=== PATIENT | female | born 1935 | race Caucasian/White ===

== ENCOUNTER 2017-02-11 08:00 | Inpatient (IN) | payer MEDICARE, OTHER ==
[2017-02-11 08:10] VITALS: BMI 23.0
[2017-02-17] MEDS ORDERED: Clindamycin/D5W 600 mg/50 ml Premix Bag ONE (07:31)
[2017-02-17] MEDS ORDERED: Tranexamic Acid 1,000 MG/100 ML BAG ONE ×2 (07:31→11:36)
[2017-02-17] MEDS ORDERED: Midazolam HCl 2 mg/2 ml Vial ONE ×2 (07:55→09:27)
[2017-02-17] MEDS ORDERED: Fentanyl 100 MCG/2 ML VIAL ONE ×3 (07:55→10:05)
[2017-02-17] MEDS ORDERED: Ropivacaine 0.2% HCl/PF 20 ML ONE (07:55)
[2017-02-17] MEDS ORDERED: Ropivacaine HCl/PF 250 ML in Premix Bag 1 BAG NERVE BLCK SCH (09:09)
[2017-02-17] MEDS ORDERED: Zolpidem Tartrate 5 MG TAB PO PRN ×2 (09:09→09:54)
[2017-02-17] MEDS ORDERED: Promethazine HCl 25 MG/ML VIAL IM PRN ×3 (09:09→11:33)
[2017-02-17] MEDS ORDERED: Ondansetron HCl/PF 4 MG/2 ML Vial IVP PRN ×3 (09:09→11:33)
[2017-02-17] MEDS ORDERED: Fentanyl 100 MCG/2 ML VIAL IV PRN (09:10)
[2017-02-17] MEDS ORDERED: Bupivacaine PF 0.5% 30 ML VIAL ONE (09:12)
[2017-02-17] MEDS ORDERED: Lidocaine 2% PF 10 ML AMP (For Epidural Use) ONE (09:43)
[2017-02-17] MEDS ORDERED: Propofol 200 MG/20 ML VIAL ONE (09:43)
[2017-02-17] MEDS ORDERED: PHENYLEPHRINE-NS 100 MCG/ML 10 ML SYRINGE ONE (09:43)
[2017-02-17] MEDS ORDERED: traMADol HCl 50 MG TAB PO PRN (09:54)
[2017-02-17] MEDS ORDERED: Acetaminophen 325 MG TAB PO PRN (09:54)
[2017-02-17] MEDS ORDERED: diphenhydrAMINE 25 MG CAP PO PRN (09:54)
[2017-02-17] MEDS ORDERED: Morphine 4 MG/ML Carpuject IVP PRN (09:54)
[2017-02-17] MEDS ORDERED: Acetaminophen/Codeine Oral Solution PO PRN (09:59)
[2017-02-17] MEDS ORDERED: Tranexamic Acid 1,000 MG in Sodium Chloride 0.9% 100 ML IVPB SCH (10:00)
[2017-02-17 10:50] LABS: Bilirubin Negative (Negative); Blood, Urine Negative (Negative); Glucose, Urine (Dipstick) Negative (Negative); Ketone, Urine Negative (Negative); Nitrite Negative (Negative); Protein, Urine (Dipstick) Negative (Neg-Trace); Urobilinogen 0.2 mg/dL (0.2-1.0)
[2017-02-17 10:52] LABS: Bacteria/HPF None Seen HPF (None Seen); Hyaline Casts/LPF 0-3 HYALINE CAST LPF (0-3 Hyaline); RBC/HPF 0-3 HPF (0-3); Squamous Epithelial 0-3 HPF (0-3); WBC/HPF 0-3 HPF (0-3)
[2017-02-17] MEDS ORDERED: Promethazine HCl 25 MG/ML VIAL SLOW IVP PRN (11:33)
[2017-02-17] MEDS: Acetaminophen 1,000 MG in Premix Bag 1 BAG IVPB SCH ×2 (12:34→18:32)
[2017-02-17] MEDS: Sodium Chloride 0.9% 1,000 ML IV SCH ×2 (12:38→20:48)
[2017-02-17] MEDS ORDERED: Acetaminophen 650 MG/20.3 ML UDCUP PO PRN (13:04)
--- NOTE | 2017-02-17 13:26 | OP ---
DATE OF PROCEDURE: 02/17/2017 PREOPERATIVE DIAGNOSIS: Right knee osteoarthrosis. POSTOPERATIVE DIAGNOSIS: Right knee osteoarthrosis. PROCEDURE PERFORMED: Right total knee replacement using Vivek pinless navigation. SURGEON: Corby Thayer M.D. TURBINE INSPECTOR: Dylan Pack PA-C. BLOOD LOSS: Minimal. COMPLICATIONS: None. ANESTHESIA: She had general anesthetic. She also had a preoperative block. IMPLANTS: To the right knee is a [place] total knee system. The femur, size 3 cruciate r etaining. Tibial baseplate size 3 universal tibial baseplate. We used a 3 x 9 mm CS X3 bearing for the tibia and we used a symmetric 27 x 8 X3 patella. DISPOSITION: She did go to recovery in stable condition. INDICATIONS: An 81-year-old female who has had years of pain in the right knee and at this point sun s failed nonoperative treatment and wishes to have the knee replaced. PROCEDURE IN DETAIL: After all appropriate consent forms were explained and signed, the patient was taken back to the Operating Room and at this time was given general anesthetic. Once the level of an esthesia was appropriate, a well-padded tourniquet was placed on the right leg and the leg was then prepped and draped in standard surgical fashion. The limb was exsanguinated and tourniquet taken up to 300 mmHg. Midline incision was made with a 10 blade down through the skin and subcutaneous tissue . Bovie electrocautery was used to coagulate any brisk venous bleeding. A new blade was used to make a medial parapatellar arthrotomy. Small subperiosteal release was performed medially and excess fat pad was removed. The knee was flexed up to gain access to the femur. The femur was navigated and di stal femoral resection was made. Epicondylar access was used to align our sizing jig and this was pi nned in place. We sized our femur to be a size 3 cruciate retaining, 4:1 cutting block was applied a nd pinned. Anterior and posterior chamfer cuts were then made. We navigated out our proximal tibia a nd made our proximal tibial resection. Spreaders were used to remove any posterior osteophytes off t he back of the femur as well as remaining meniscal tissue. A long alignment margot was then used to ach ieve correct rotation of our tibial baseplate and a size 3 universal tibial baseplate was chosen. Th is was pinned in place. We trialed the polyethylene and a 3 x 9 mm CS X3 bearing gave us full extens ion and good stability throughout range of motion. Two towel clips and a saw were used to cut our pa tella. Three lug nuts were drilled and symmetric 27 x 8 X3 patella was trialed which sat nicely in [facility] trochlear groove. We then drilled our femur and punched our tibia. All components were removed. [facility] knee was thoroughly irrigated and dried. Cement was mixed into the cement gun on the back table. Components were then placed. The knee was held out in full extension until the cement had dried. All excess bone cement was removed. Multiple #2 Vicryl stitches as well as a Quill was used to close o ur extensor mechanism. 0 Quill followed by a running Monoderm was then used to close the skin. Surgi kely glue was then used on the skin. Once this had dried, soft tissue dressing was applied to the sellers b, tourniquet was let down, and the toes pinked up nicely. The patient was then awakened and taken to the Recovery Room in stable condition. All counts were correct at the end of the case. The patien t did receive preoperative IV antibiotics. The patient was injected with Exparel for postoperative pain relief.
[2017-02-17] MEDS ORDERED: Ketorolac Tromethamine 30 MG/ML VIAL IVP SCH (14:00)
[2017-02-17] MEDS ORDERED: Ropivacaine 0.5% HCl/PF (150 MG/30 ML VIAL) ONE (14:14)
[2017-02-17] MEDS ORDERED: Acetaminophen 650 MG/20.3 ML UDCUP PO SCH (18:00)
[2017-02-17] MEDS: Clindamycin/D5W 600 MG in Premix Bag 1 BAG IVPB SCH (18:31)
[2017-02-17] MEDS ORDERED: Vancomycin HCl 1 GM in Premix Bag 1 BAG IVPB SCH (20:00)
[2017-02-17] MEDS: Aspirin 325 MG TAB PO SCH (20:45)
[2017-02-17] MEDS: Senokot S 8.6-50 MG TAB PO SCH (20:49)
[2017-02-17] MEDS ORDERED: Ferrous Gluconate 324 MG TAB PO SCH (21:00)
[2017-02-18] MEDS: Clindamycin/D5W 600 MG in Premix Bag 1 BAG IVPB SCH ×2 (00:03→07:57)
[2017-02-18 05:37] LABS: Hematocrit 28.1 % (36.0-47.0); Mean Platelet Volume 7.5 fL (7.4-10.4); Red Blood Cell (RBC) Count 2.92 mill/uL (4.20-5.40); White Blood Cell (WBC) Count 4.5 thou/uL (4.8-10.8)
[2017-02-18] MEDS: Sodium Chloride 0.9% 1,000 ML IV SCH ×2 (05:47→14:42)
[2017-02-18] MEDS: Acetaminophen 1,000 MG in Premix Bag 1 BAG IVPB SCH ×4 (06:14→11:10)
[2017-02-18] MEDS: Senokot S 8.6-50 MG TAB PO SCH ×2 (07:54→20:42)
[2017-02-18] MEDS: Hydrochlorothiazide 25 MG TAB PO SCH (07:54)
[2017-02-18] MEDS: Aspirin 325 MG TAB PO SCH ×2 (07:55→20:42)
[2017-02-18] MEDS: Multivitamin W/ Minerals 1 TAB PO SCH (07:55)
[2017-02-18] MEDS: Amlodipine 5 MG TAB PO SCH (07:56)
[2017-02-18] MEDS: Cyanocobalamin (Vitamin B-12) 1,000 MCG TAB PO SCH (07:56)
[2017-02-18] MEDS ORDERED: BIOTIN 5000 MCG PO SCH (09:00)
[2017-02-18] MEDS ORDERED: BROMFENAC SODIUM L EYE SCH (09:00)
[2017-02-18] MEDS ORDERED: Ferrous Sulfate 325 MG TAB PO SCH (09:00)
--- NOTE | 2017-02-18 10:27 | CON ---
DATE OF CONSULTATION: 02/18/2017 REASON FOR CONSULTATION: Medical management. HISTORY OF PRESENT ILLNESS: This is an 81-year-old female patient with a history of hypertension, h yperlipidemia, multiple myeloma, osteoporosis with persistent right knee pain, which failed outpatie nt management. She is now status post right total knee replacement and doing well by Dr. Thayer. She had an unremarkable postoperative stay so far. She denies chest pain, shortness of breath, or palp itations. Her pain is managed appropriately with analgesia. She had some nausea this morning, but otherwise feeling fine. PAST MEDICAL HISTORY: Hypertension, hyperlipidemia pinched nerve, multiple myeloma, history of oste oporosis. MEDICATIONS: Include gabapentin 100 mg t.i.d., hydrochlorothiazide 25 mg daily, benazepril 10 mg da rosa, amlodipine 5 mg daily, vitamin D 2000 units daily, pravastatin 10 mg daily, Pepcid p.r.n. She was on Advil p.r.n. and aspirin 81 mg daily. ALLERGIES: PENICILLIN. PAST SURGICAL HISTORY: Foot surgery for her left foot in 2007, left meniscal knee repair in 2006, b ilateral salpingo-oophorectomy and hysterectomy in 2002, prolapsed bladder repair in 2012, cataract removal in 2013 and EGD in 2005. FAMILY HISTORY: Father at 72. Mother with leukemia and at 62. Sister with SC at 72. Brother with heart disease at 65. Sister with esophageal cancer. Mother with acute anemia. SOCIAL HISTORY: No smoking, no alcohol, no drug use. She is retired. She is a . She lives a lone at home with her daughter nearby. REVIEW OF SYSTEMS: As per the history of present illness. GENERAL: She denies any recent fevers, chills or recent illness. HEENT: Denies headache, vision or hearing changes. CARDIAC: Denies chest pain or shortness of breath. PULMONARY: Denies cough or hemoptysis. GASTROINTESTINAL: Denies nausea, vomiting at this time. Denies abdominal pain. GENITOURINARY: History of urinary tract infections. NEUROLOGIC: No weakness, seizures, or syncope. PHYSICAL EXAMINATION: VITAL SIGNS: Temperature 98.5, pulse 83, respirations 18, blood pressure 128/69, pulse ox 97% on ro om air. GENERAL: She is awake and alert, in no acute distress. Speech is clear. Mucosa is moist. NECK: Supple. HEART: Regular rate and rhythm. LUNGS: Clear. ABDOMEN: Soft, flat, nontender, nondistended. No hepatosplenomegaly. EXTREMITIES: With dressing and brace on her right knee. No edema, 2+ peripheral pulses bilaterally . LABORATORY DATA: Urinalysis was normal. Postop CBC reveals a white blood cell count of 4500, hemog lobin and hematocrit 9.3 and 28.1, platelets of 153. ASSESSMENT AND PLAN: This is an 81-year-old female patient with history of right knee osteoarthrosi s, status post right total knee replacement, doing well. 1. Postop of care per Orthopedics for deep venous thrombosis prevention and GI protection. 2. Hypertension. We will continue her oral meds and monitor closely. She seems to be doing fairly well right now. 3. Hyperlipidemia. We will continue her home medications. 4. Postop nausea is managed appropriately and she is doing better as well as with analgesia. 5. Disposition: Plan for discharge home with therapy tomorrow or as per Orthopedics.
[2017-02-18] MEDS: Acetaminophen/Codeine 120-12MG/5 ML UDCUP PO PRN ×2 (12:07→20:59)
[2017-02-18] MEDS ORDERED: Acetaminophen 500 MG TAB PO SCH (18:00)
[2017-02-19] MEDS: Sodium Chloride 0.9% 1,000 ML IV SCH ×2 (04:09→14:24)
[2017-02-19 05:15] LABS: Hematocrit 28.3 % (36.0-47.0); Mean Platelet Volume 7.8 fL (7.4-10.4); Red Blood Cell (RBC) Count 2.92 mill/uL (4.20-5.40)
[2017-02-19] MEDS: Acetaminophen/Codeine 120-12MG/5 ML UDCUP PO PRN ×2 (07:47→14:20)
[2017-02-19] MEDS: Amlodipine 5 MG TAB PO SCH (07:50)
[2017-02-19] MEDS: Hydrochlorothiazide 25 MG TAB PO SCH (07:51)
[2017-02-19] MEDS: Cyanocobalamin (Vitamin B-12) 1,000 MCG TAB PO SCH (07:51)
[2017-02-19] MEDS: Multivitamin W/ Minerals 1 TAB PO SCH (07:52)
[2017-02-19] MEDS: Senokot S 8.6-50 MG TAB PO SCH (07:52)
[2017-02-19] MEDS: Aspirin 325 MG TAB PO SCH (07:53)
--- NOTE | 2017-02-19 08:28 | PRG ---
DATE OF SERVICE: 02/19/2017 SUBJECTIVE: The patient denies chest pain, denies shortness of breath. She is tolerating physical therapy with the pain, but doing better. She only required her pain medicine last night before bed and then once this morning. She is anticipating therapy and motivated to proceed, so that her pain will improve. Anticipating being discharged home today as well. PHYSICAL EXAMINATION: VITAL SIGNS: Temperature 99.6 which is her T-max, pulse of 96, respirations 18, blood pressure 152/ 82, pulse ox 97% on room air. GENERAL: She is awake and alert, in no acute distress. HEENT: Speech is clear. NECK: Supple. HEART: Regular rate and rhythm. LUNGS: Clear. EXTREMITIES: With no edema. A dressing in brace on right knee. LABORATORY DATA: White blood cell count 7000, hemoglobin and hematocrit are 9.3 and 28.3, which is stable in her baseline. ASSESSMENT AND PLAN: This is an 81-year-old female patient with a history of chronic arthritis, now status post right total knee replacement and doing well. 1. Continue postop care as per Orthopedics. 2. Hypertension. We will continue her oral medications and monitor closely. We may start p.r.n. m edication, if her blood pressure elevates. 4. Postop nausea has resolved. 5. Disposition: Hopefully home later today after therapy.
[2017-02-19 14:05] VITALS: BP 134/70; TEMP 98.1
== END 2017-02-19 15:00 | disposition home or self-care (01) | DRG 470 ==
LOC: SURG A 02-17 07:06 → SJJU 02-17 11:53
PROVIDERS: ADMIT Orthopaedic Surgery; ATTEND Orthopaedic Surgery
PROC: 0SRC0J9 Replacement of Right Knee Joint with Synthetic Substitute, Cemented, Open Approach (ICD-10-PCS; principal; 2017-02-17)
PROC: 3E0T3BZ Introduction of Anesthetic Agent into Peripheral Nerves and Plexi, Percutaneous Approach (ICD-10-PCS; 2017-02-17)
DX: M17.0 Bilateral primary osteoarthritis of knee (principal); T81.89XA Other complications of procedures, not elsewhere classified, initial encounter; D64.9 Anemia, unspecified; I10 Essential (primary) hypertension; E78.5 Hyperlipidemia, unspecified; R11.0 Nausea; Z88.0 Allergy status to penicillin; Z90.710 Acquired absence of both cervix and uterus
CPT/HCPCS: 36415; 81001; 85027; 87086; C1713; C1776; G8978-GP-CL; G8979-GP-CJ; J0131; J2001; J2250; J2405; J2704; J2795; J3010; J3370; J3490; S0020

== ENCOUNTER 2017-05-02 19:08 | Emergency (ER) | payer MEDICARE, OTHER ==
--- NOTE | 2017-05-02 20:18 | RAD ---
EXAM: RIGHT HAND THREE VIEWS 05/02/17 HISTORY: Deformity. Pain. COMPARISON: None. FINDINGS: There is an impacted, mildly displaced distal radius fracture with extension of the fracture into the radiocarpal joint space. Displaced ulnar styloid fracture is noted. There is nonspecific soft tissue calcification at the base of the thumb as well as in the triangular fibrocartilage complex. 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 IMPRESSION: Distal radius and ulnar fractures. POS: BETTY
== END 2017-05-02 20:12 | disposition home or self-care (01) ==
LOC: SCSER 19:08
DX: S52.501A Unspecified fracture of the lower end of right radius, initial encounter for closed fracture (principal); S52.601A Unspecified fracture of lower end of right ulna, initial encounter for closed fracture; E78.5 Hyperlipidemia, unspecified; I10 Essential (primary) hypertension; Z79.82 Long term (current) use of aspirin; Z79.891 Long term (current) use of opiate analgesic; Z79.899 Other long term (current) drug therapy; W19.XXXA Unspecified fall, initial encounter
CPT/HCPCS: 29125

== ENCOUNTER 2017-11-04 13:43 | Outpatient (CLI) | payer MEDICARE, OTHER | END 2017-11-04 13:44 | disposition home or self-care (01) | LOC: BICMAMMO 13:43 | PROVIDERS: ATTEND Family Medicine | DX: Z12.31 Encounter for screening mammogram for malignant neoplasm of breast (principal) | CPT/HCPCS: 77063; 77067 ==

== ENCOUNTER 2018-07-31 07:47 | Outpatient (CLI) | payer MEDICARE, OTHER ==
--- NOTE | 2018-07-31 09:06 | MRI ---
MRI Cervical spine without contrast: HISTORY: Cervical radiculopathy. Patient complains of right arm pain which extends into neck. COMPARISON: CT cervical spine in 2017 FINDINGS: The craniocervical junction is unremarkable. No significant cord signal abnormality. Paravertebral soft tissues have a normal appearance and normal signal intensity. The thyroid nodule in the right lobe of thyroid gland seen on CT evaluation is now well imaged on thi s examination, but there is suggestion of a heterogeneous right thyroid nodule incompletely imaged or evaluated. C1-2:There is prominent degenerative changes and pannus formation seen at the articulation of the odo ntoid with the anterior arch of the C1 vertebral body. Prominent calcifications were seen in this region on prior CT exam. C2-3: No central disc bulge or disc herniation. The central spinal canal and neural foramina are loera nt. C3-4: There is minimal disc osteophyte complex present. There is no significant narrowing of the cent ral spinal canal. Facet degenerative changes are present. Findings result in mild bilateral neural foraminal narrowing. C4-5: There is a broad-based disc osteophyte complex resulting slight effacement of the ventral subar achnoid space. Facet hypertrophic changes are present. There is mild right and moderate to severe left-sided neural foraminal narrowing. C5-6: There is loss of intervertebral disc height. There is broad-based disc osteophyte complex. This slightly narrows the ventral subarachnoid space but does not encroach on the spinal cord. Facet hypertrophic changes are seen greater on the left. There is uncinate process hypertrophy on the right . There is severe right and mild to moderate left-sided neural foraminal narrowing. C6-7: There is broad-based disc osteophyte complex and facet hypertrophic changes. There is mild effa cement of the ventral subarachnoid space. There is mild bilateral neural foraminal narrowing greater on the right. C7-T1: No significant disc bulge or disc herniation. Central spinal canal and neural foramina are pat ent. T1-2 level: There is trace anterolisthesis of T1 on T2. There is slight wedge-shaped deformity of the T2 vertebral body which may be related to a Schmorl's node in the anterior superior endplate of the T2 vertebral body; however, given wedge-shaped appearance of this vertebral body, a mild remote w edge-shaped compression deformity cannot be excluded. There is no central disc bulge or disc herniation at this level. IMPRESSION: 1. Multilevel degenerative changes in the cervical spine. 2. Incomplete visualization of a heterogeneous nodule right lobe of the thyroid gland. This was visu alized on CT cervical spine on 12/26/2016. 3. Trace anterolisthesis of T1 on T2. There is mild wedge-shaped deformity of the T2 vertebral body, but there is no edema within the vertebral body to suggest evidence of a recent compression deformity.
== END 2018-07-31 07:48 | disposition home or self-care (01) ==
LOC: TBSIIMAG 07:47
PROVIDERS: ATTEND Orthopaedic Surgery
DX: M47.22 Other spondylosis with radiculopathy, cervical region (principal)
CPT/HCPCS: 72141

== ENCOUNTER 2024-01-26 09:13 | Inpatient (IN) | payer MEDICARE, OTHER ==
[2024-01-26 10:04] LABS: #Basophils Less than 0.03 10x3/uL (0.0-0.2); #Eosinophils Less than 0.03 10x3/uL (0.0-0.7); %Basophils 0.1 % (0.0-1.0); %Eosinophils 0.1 % (0.0-10.0); %Lymphocytes 16.5 % (21.0-51.0); %Monocytes 8.4 % (0.0-10.0); %Neutrophils 74.5 % (42.0-75.0); Hematocrit 32.8 % (36.0-47.0); Hemoglobin 10.6 g/dL (12.0-16.0); Mean Corpuscular HGB CONC 32.3 g/dL (32.0-36.0); Mean Corpuscular Volume 102.2 fL (78.0-98.0); Mean Platelet Volume 10.2 fL (7.4-10.4); Platelet Count 194 10x3/uL (130-400); RBC Distribution Width 13.8 % (11.5-14.5); Red Blood Cell (RBC) Count 3.21 mill/uL (4.20-5.40)
[2024-01-26] MEDS ORDERED: Iopamidol-370 76% 500 ML MDV (1 ML CHARGE) ONE (10:33)
[2024-01-26 10:44] LABS: ALT (SGPT) 10 U/L (8-55); AST (SGOT) 51 U/L (5-34); Albumin 3.7 g/dL (3.4-4.8); Alkaline Phosphatase 106 U/L (40-110); Anion Gap 14 mmol/L (10-20); BUN (Urea Nitrogen) 34 mg/dL (9.8-20.1); Bilirubin, Total 0.7 mg/dL (0.2-1.2); Calc. Creatinine Clearance 0 mL/min (70-130); Calcium 9.6 mg/dL (7.8-10.44); Carbon Dioxide 21 mmol/L (23-31); Chloride 108 mmol/L (98-107); Estimated GFR 55; Glucose 96 mg/dL (83-110); Magnesium 1.9 mg/dL (1.6-2.6); Potassium 3.7 mmol/L (3.5-5.1); Protein, Total 7.7 g/dL (5.8-8.1); Sodium 139 mmol/L (136-145)
[2024-01-26] MEDS ORDERED: Aspirin Chewable 81 MG TAB ONE (11:48)
[2024-01-26] MEDS ORDERED: Furosemide 40 MG (4 mL) VIAL ONE (11:48)
[2024-01-26 11:56] LABS: Troponin I 0.173 ng/mL (< 0.028)
[2024-01-26] MEDS ORDERED: Acetaminophen 650 MG Suppository PR PRN (12:52)
[2024-01-26] MEDS ORDERED: Acetaminophen 325 MG TAB PO PRN (12:52)
[2024-01-26] MEDS ORDERED: Electrolyte Replacement Protocol 1 EACH FS SCH (13:00)
[2024-01-26 13:02] LABS: Troponin I 0.165 ng/mL (< 0.028)
[2024-01-26 14:34] VITALS: BMI 21.9
[2024-01-26 16:01] LABS: Troponin I 0.197 ng/mL (< 0.028)
[2024-01-26] MEDS: Carbidopa/Levodopa 25-100 mg Tablet PO SCH (16:37)
[2024-01-26] MEDS: Furosemide 40 MG (4 mL) VIAL SLOW IVP SCH (16:37)
[2024-01-26] MEDS: Enalaprilat Dihydrate 1.25 MG/ML VIAL SLOW IVP SCH (17:43)
[2024-01-26] MEDS ORDERED: Enalaprilat Dihydrate 1.25 MG in Dextrose 5% in Water 50 ML IVPB SCH (18:00)
[2024-01-26 18:37] LABS: Troponin I 0.198 ng/mL (< 0.028)
[2024-01-27 05:15] LABS: #Basophils 0.03 10x3/uL (0.0-0.2); %Basophils 0.4 % (0.0-1.0); %Eosinophils 0.6 % (0.0-10.0); %Lymphocytes 20.4 % (21.0-51.0); %Monocytes 10.8 % (0.0-10.0); %Neutrophils 67.3 % (42.0-75.0); Hematocrit 36.6 % (36.0-47.0); Hemoglobin 11.8 g/dL (12.0-16.0); Mean Corpuscular HGB CONC 32.2 g/dL (32.0-36.0); Mean Corpuscular Hemoglobin 33.3 pg (27.0-31.0); Mean Corpuscular Volume 103.4 fL (78.0-98.0); Mean Platelet Volume 10.4 fL (7.4-10.4); Platelet Count 239 10x3/uL (130-400); RBC Distribution Width 13.7 % (11.5-14.5); Red Blood Cell (RBC) Count 3.54 mill/uL (4.20-5.40)
[2024-01-27 05:29] LABS: Anion Gap 17 mmol/L (10-20); BUN (Urea Nitrogen) 36 mg/dL (9.8-20.1); Calc. Creatinine Clearance 24 mL/min (70-130); Calcium 9.7 mg/dL (7.8-10.44); Carbon Dioxide 24 mmol/L (23-31); Chloride 105 mmol/L (98-107); Estimated GFR 34; Glucose 83 mg/dL (83-110); Potassium 3.8 mmol/L (3.5-5.1); Sodium 142 mmol/L (136-145)
[2024-01-27 05:45] LABS: Ferritin 107.82 ng/mL (10-291); Thyroid Stimulating Hormone 1.9784 uIU/mL (0.35-4.94)
[2024-01-27] MEDS: Cholecalciferol 1,000 UNITS (25 MCG) TAB PO SCH (08:27)
[2024-01-27] MEDS: Amlodipine 5 MG TAB PO SCH (08:28)
[2024-01-27] MEDS: Enoxaparin 40 MG (0.4 mL) SYRINGE SC SCH (08:29)
[2024-01-27] MEDS: Aspirin 81 mg Enteric Coated Tablet PO SCH (08:32)
[2024-01-27] MEDS ORDERED: BROMFENAC SODIUM 0.09% L EYE SCH (09:00)
[2024-01-27] MEDS ORDERED: E-Z-HD 98% W/W 340GM BOT (x-ray ONLY) ONE (12:35)
[2024-01-27] MEDS ORDERED: Barium Sulfate 96% 176 GM BOT (xray ONLY) ONE (12:35)
[2024-01-27 14:32] VITALS: BMI 20.3
[2024-01-28 04:36] LABS: #Basophils 0.03 10x3/uL (0.0-0.2); %Basophils 0.4 % (0.0-1.0); %Eosinophils 0.8 % (0.0-10.0); %Lymphocytes 27.7 % (21.0-51.0); %Monocytes 8.2 % (0.0-10.0); %Neutrophils 62.6 % (42.0-75.0); Hematocrit 35.9 % (36.0-47.0); Hemoglobin 11.7 g/dL (12.0-16.0); Mean Corpuscular HGB CONC 32.6 g/dL (32.0-36.0); Mean Corpuscular Hemoglobin 33.1 pg (27.0-31.0); Mean Corpuscular Volume 101.4 fL (78.0-98.0); Mean Platelet Volume 9.9 fL (7.4-10.4); Platelet Count 255 10x3/uL (130-400); RBC Distribution Width 13.5 % (11.5-14.5); Red Blood Cell (RBC) Count 3.54 mill/uL (4.20-5.40)
[2024-01-28 05:27] LABS: Anion Gap 15 mmol/L (10-20); BUN (Urea Nitrogen) 43 mg/dL (9.8-20.1); Calc. Creatinine Clearance 28 mL/min (70-130); Calcium 9.2 mg/dL (7.8-10.44); Carbon Dioxide 23 mmol/L (23-31); Chloride 104 mmol/L (98-107); Estimated GFR 44; Glucose 91 mg/dL (83-110); Potassium 3.3 mmol/L (3.5-5.1); Sodium 139 mmol/L (136-145)
[2024-01-28] MEDS: Potassium Chloride 20 MEQ TAB PO SCH (09:17)
[2024-01-28] MEDS: Enoxaparin 30 MG (0.3 mL) SYRINGE SC SCH (09:18)
[2024-01-28 14:10] LABS: Potassium 3.8 mmol/L (3.5-5.1)
[2024-01-28 17:09] VITALS: BP 125/65; TEMP 97.9
== END 2024-01-28 17:04 | disposition home health service (06) | DRG 291 ==
LOC: ERS 09:13 → OBS 14:18 → OBSVTOIN 01-27 12:51
PROVIDERS: ADMIT Internal Medicine; ATTEND Hospitalist
DX: I13.0 Hypertensive heart and chronic kidney disease with heart failure and stage 1 through stage 4 chronic kidney disease, or unspecified chronic kidney disease (principal); I50.33 Acute on chronic diastolic (congestive) heart failure; J96.01 Acute respiratory failure with hypoxia; C90.00 Multiple myeloma not having achieved remission; N17.9 Acute kidney failure, unspecified; Z68.1 Body mass index [BMI] 19.9 or less, adult; E44.1 Mild protein-calorie malnutrition; E78.5 Hyperlipidemia, unspecified; G20.A1 Parkinson's disease without dyskinesia, without mention of fluctuations; Z88.0 Allergy status to penicillin; Z90.710 Acquired absence of both cervix and uterus; Z98.890 Other specified postprocedural states; R13.10 Dysphagia, unspecified; I5A Non-ischemic myocardial injury (non-traumatic)
CPT/HCPCS: 36415; 71275; 74220; 80048; 80053; 82728; 83735; 83880; 84443; 84484; 85025; 93005; 93306; 93798; 96372; 96374; 96375; 96376; G0378; J1650; J1940; Q9967

== ENCOUNTER 2024-05-11 14:21 | Observation (INO) | payer MEDICARE, OTHER ==
[2024-05-11] MEDS ORDERED: Furosemide 40 MG (4 mL) VIAL ONE (15:37)
[2024-05-11 16:12] LABS: #Basophils 0.03 10x3/uL (0.0-0.2); %Basophils 0.7 % (0.0-1.0); %Eosinophils 1.6 % (0.0-10.0); %Lymphocytes 32.6 % (21.0-51.0); %Monocytes 9.1 % (0.0-10.0); %Neutrophils 55.8 % (42.0-75.0); Hematocrit 36.6 % (36.0-47.0); Hemoglobin 12.2 g/dL (12.0-16.0); Mean Corpuscular HGB CONC 33.3 g/dL (32.0-36.0); Mean Corpuscular Hemoglobin 33.5 pg (27.0-31.0); Mean Corpuscular Volume 100.5 fL (78.0-98.0); Mean Platelet Volume 10.3 fL (7.4-10.4); Platelet Count 160 10x3/uL (130-400); Red Blood Cell (RBC) Count 3.64 mill/uL (4.20-5.40)
[2024-05-11 16:33] LABS: ALT (SGPT) Less than 7 U/L (Less than 34); AST (SGOT) 37 U/L (11-34); Albumin 3.5 g/dL (3.1-4.5); Alkaline Phosphatase 86 U/L (40-110); Anion Gap 14 mmol/L (10-20); BUN (Urea Nitrogen) 29 mg/dL (9.8-20.1); Bilirubin, Total 0.5 mg/dL (0.3-1.2); Calc. Creatinine Clearance 0 mL/min (70-130); Carbon Dioxide 21 mmol/L (23-31); Chloride 106 mmol/L (98-107); Estimated GFR 53; Glucose 85 mg/dL (83-110); Potassium 3.8 mmol/L (3.5-5.1); Protein, Total 7.5 g/dL (5.8-8.1); Sodium 137 mmol/L (136-145)
[2024-05-11 16:37] LABS: Troponin I 0.136 ng/mL (< 0.028)
[2024-05-11] MEDS ORDERED: Aspirin Chewable 81 MG TAB ONE ×2 (17:32→17:34)
[2024-05-11] MEDS ORDERED: Ondansetron PF 4 MG/2 ML Vial IVP PRN (18:07)
[2024-05-11] MEDS ORDERED: Acetaminophen 325 MG TAB PO PRN (18:07)
[2024-05-11 19:41] LABS: Troponin I 0.153 ng/mL (< 0.028)
[2024-05-11 20:58] VITALS: BMI 20.4
[2024-05-11 22:56] LABS: Troponin I 0.156 ng/mL (< 0.028)
[2024-05-12 04:46] LABS: ALT (SGPT) 18 U/L (Less than 34); AST (SGOT) 40 U/L (11-34); Albumin 3.4 g/dL (3.1-4.5); Alkaline Phosphatase 80 U/L (40-110); Anion Gap 16 mmol/L (10-20); BUN (Urea Nitrogen) 27 mg/dL (9.8-20.1); Bilirubin, Total 0.8 mg/dL (0.3-1.2); Calc. Creatinine Clearance 29 mL/min (70-130); Calcium 10.1 mg/dL (7.8-10.44); Carbon Dioxide 25 mmol/L (23-31); Chloride 102 mmol/L (98-107); Estimated GFR 48; Globulin 4.1 g/dL (2.4-3.5); Glucose 77 mg/dL (83-110); Magnesium 1.5 mg/dL (1.6-2.6); Potassium 3.5 mmol/L (3.5-5.1); Protein, Total 7.5 g/dL (5.8-8.1); Sodium 139 mmol/L (136-145)
[2024-05-12] MEDS: Enoxaparin 40 MG (0.4 mL) SYRINGE SC SCH (08:38)
[2024-05-12] MEDS: Amlodipine 5 MG TAB PO SCH (08:38)
[2024-05-12] MEDS: Furosemide 20 MG (2 mL) VIAL SLOW IVP SCH (08:38)
[2024-05-12] MEDS: Cholecalciferol 1,000 UNITS (25 MCG) TAB PO SCH (08:39)
[2024-05-12] MEDS: Empagliflozin 10 MG TAB PO SCH (08:39)
[2024-05-12] MEDS: Carbidopa/Levodopa 25-100 mg Tablet PO SCH (08:39)
[2024-05-12] MEDS ORDERED: Bromfenac Sodium [Prolensa] 3 ML Drops L EYE SCH (09:00)
[2024-05-12] MEDS ORDERED: Non-Formulary Item 1 EACH (Spironolactone [Spironolactone] 50 MG Tablet) PO PRN (09:39)
[2024-05-12] MEDS: Magnesium 2 GM/50 ML(in water) 2 GM in Premix 1 BAG IVPB SCH (11:22)
[2024-05-12 11:38] VITALS: BP 113/68; TEMP 98.6
[2024-05-13] MEDS ORDERED: Enoxaparin 30 MG (0.3 mL) SYRINGE SC SCH (09:00)
== END 2024-05-12 15:30 | disposition home or self-care (01) ==
LOC: ERS 14:21 → 2NO 17:44
PROVIDERS: ADMIT Internal Medicine; ATTEND Internal Medicine
DX: I13.0 Hypertensive heart and chronic kidney disease with heart failure and stage 1 through stage 4 chronic kidney disease, or unspecified chronic kidney disease (principal); I50.33 Acute on chronic diastolic (congestive) heart failure; N18.30 Chronic kidney disease, stage 3 unspecified; I5A Non-ischemic myocardial injury (non-traumatic); E87.5 Hyperkalemia; G20.A1 Parkinson's disease without dyskinesia, without mention of fluctuations; Z90.710 Acquired absence of both cervix and uterus; Z88.0 Allergy status to penicillin; Z79.84 Long term (current) use of oral hypoglycemic drugs; Z79.1 Long term (current) use of non-steroidal anti-inflammatories (NSAID); Z79.899 Other long term (current) drug therapy
CPT/HCPCS: 71045; 80053 ×2; 83735; 83880; 84443; 84484 ×2; 85025; 87428; 93005; 96374; 96375; 96376; 99285; G0378 ×3; J1650; J1940 ×2; J3475; 36415